=== PATIENT | male | born 1995 | race Caucasian/White ===

== ENCOUNTER 2021-07-07 12:35 | Emergency (ER) | payer SELFPAY ==
[~2021-07-07] VITALS: Ht 172.7 cm; Wt 66.3 kg
[2021-07-07 12:45] VITALS: BP 134/86
[2021-07-07] MEDS ORDERED: FLUORESCEIN OPTH STRIP 1 MG OP ONE (12:50)
--- NOTE | 2021-07-07 13:12 | NUR ---
EYE EXAM B 20/20 R 20/20 L 20/40
[2021-07-07] MEDS ORDERED: TETRACAINE HCL/PF 0.5% OPTH 4 ML BTL OP ONE (13:20)
[2021-07-07] MEDS ORDERED: LORazepam 1 MG TAB PO ONE (13:25)
--- NOTE | 2021-07-07 13:42 | NUR ---
PATIENT PRESENTS TO ED WITH RIGHT EYE PAIN X2 DAYS . PT STATES HE BELIEVES A METAL SCRAP OR SOME TYPE OF OBJECT GOT STUCK IN HIS EYE AT WORK. SCLERA IS REDDENED . DENIES N/V/D; SKIN IS PINK/WARM/DRY; AAOX4 WITH EVEN AND STEADY GAIT; LUNGS CLEAR BL; HR EVEN AND REGULAR; PT DENIES ANY FEVER, CP, SOB, OR COUGH AT THIS TIME; PATIENT STATES PAIN OF 8/10 AT THIS TIME; VSS; PATIENT POSITIONED FOR COMFORT; HOB ELEVATED; BEDRAILS UP X2; BED DOWN. ER MD MADE AWARE OF PT STATUS.
[2021-07-07] MEDS ORDERED: IBUP-1842 PO (13:55)
[2021-07-07] MEDS ORDERED: OFLOS BOTH EYES (13:55)
[2021-07-07 14:05] VITALS: BP 134/86
--- NOTE | 2021-07-07 14:05 | NUR ---
Patient discharged with v/s stable. Written and verbal after care instructions given and explained. Patient alert, oriented and verbalized understanding of instructions. Ambulatory with steady gait. All questions addressed prior to discharge. ID band removed. Patient advised to follow up with PMD. Rx of OFLOXACIN, IBUPROFEN given. Patient educated on indication of medication including possible reaction and side effects. Opportunity to ask questions provided and answered.
== END 2021-07-07 14:05 | disposition home or self-care (01) ==
LOC: MED 12:35
DX: T15.82XA Foreign body in other and multiple parts of external eye, left eye, initial encounter (principal); T15.81XA Foreign body in other and multiple parts of external eye, right eye, initial encounter
CPT/HCPCS: 65205; 99284